=== PATIENT | female | born 1975 | race Caucasian/White ===

== ENCOUNTER 2019-10-07 17:29 | Emergency (ER) | payer SELFPAY ==
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
[2019-10-07 19:59] LABS: ABS Eosinophils 0.2 10^3/ul (0-0.6); ABS Lymphocytes 1.9 10^3/ul (1.0-4.8); ABS Monocytes 0.7 10^3/ul (0-0.8); Eosinophil % 1.8 %; Hematocrit 36 % (35-47); Hemoglobin 12.1 g/dL (12.0-16.0); Lymphocyte % 15.8 %; Mean Corpuscular HGB Conc 34 g/dL (31-36); Mean Corpuscular Hemoglobin 29 pg (27-31); Mean Corpuscular Volume 84 fL (80-97); Mean Platelet Volume 8.7 fL (7.4-10.4); Platelet Count 277 10^3/uL (150-450); Red Blood Count 4.23 10^6 /uL (3.70-4.87); Red Cell Distribution Width 15 % (10-15); White Blood Count 11.8 10^3/uL (3.5-10.8)
[2019-10-07 20:19] LABS: ALT 20 U/L (7-52); AST 23 U/L (13-39); Albumin 4.3 g/dL (3.2-5.2); Albumin/Globulin Ratio 1.3 (1-3); Alkaline Phosphatase 68 U/L (34-104); Anion Gap 7 mmol/L (2-11); BUN/Creatinine Ratio 15.9 (8-20); Blood Urea Nitrogen 13 mg/dL (6-24); CO2 Carbon Dioxide 28 mmol/L (22-32); Calcium 9.4 mg/dL (8.6-10.3); Chloride 103 mmol/L (101-111); EGFR African American 92.5 (>60); EGFR Non-African American 76.5 (>60); Globulin 3.3 g/dL (2-4); Glucose 120 mg/dL (70-100); Potassium 3.7 mmol/L (3.5-5.0); Sodium 138 mmol/L (135-145); Total Protein 7.6 g/dL (6.4-8.9)
[2019-10-07 20:23] LABS: HCG Pregnancy < 0.60 mIU/mL
[2019-10-07] MEDS ORDERED: Iohexol 300* (CONTRAST) 10 ML SDV IV ONE (20:31)
[2019-10-07 22:04] VITALS: BP 98/77
== END 2019-10-07 22:03 | disposition home or self-care (01) ==
LOC: ED 17:29
DX: S29.9XXA Unspecified injury of thorax, initial encounter (principal); S39.011A Strain of muscle, fascia and tendon of abdomen, initial encounter; V43.62XA Car passenger injured in collision with other type car in traffic accident, initial encounter; Y92.410 Unspecified street and highway as the place of occurrence of the external cause
CPT/HCPCS: 36415; 71046; 74177; 80053; 83605; 84702; 85025; 86140; 93005; 99282; Q9967

== ENCOUNTER 2019-10-15 08:46 | Emergency (ER) | payer SELFPAY ==
--- OUTSIDE RECORDS SUMMARY | 2019-10-15 08:53 | XMS REPORT | Continuity of Care Document ---
:1975 External Reference #:[id number] Author Name Tommie Salazar MD Address [address] [place] [address] Problems Active Problems Provider Date Asthma without status asthmaticus Richard Mc M.D. Onset: 10/31/2014 Acute sinusitis Richard Mc M.D. Onset: 10/31/2014 Allergic condition Ever Garnica M.D. Onset: 06/11/2012 Acute bronchitis Ever Garnica M.D. Onset: 06/11/2012 Herpes zoster without complication Isrrael Villalobos M.D. Onset: 04/15/2012 Acute upper respiratory infection Isrrael Villalobos M.D. Onset: 11/20/2011 Social History Type Date Description Comments Sex Unknown Tobacco Use Start: Unknown Nonsmoker Tobacco Use Start: Unknown Patient has never smoked Smoking Status Reviewed: 02/10/19 Patient has never smoked Allergies, Adverse Reactions, Alerts Active Allergies Reaction Severity Comments Date Cefuroxime rash 06/09/2012 Inactive Allergies NKDA 11/20/2011 Methylprednisolone rash 06/09/2012 Medications Active Medications SIG Qnty Indications Ordering Date Provider Sodium Chloride mix with 1box Sara CRobbie 05/28/2019 0.9% albuterol HAMLET Mccoy Nebulizer solution for nebulizer. Albuterol Sulfate use as needed 30units J45.998 Kori Singh 02/10/2019 (5mg/ML) for use in HAMLET Hay 0.5% Nebulizer nebulizer for wheezing. - Dx: J45.998 - last seen 02/10/19 Zyrtec-D Allergy & 1 every day as Unknown Congestion needed 5-120mg Tablets ER 12HR Cyclobenzaprine HCL 1 by mouth three Unknown 10mg times a day as Tablets needed x4 days Ibuprofen 1 tab by mouth Unknown 600mg Tablets every 6 hours as needed pain. take with food Acetaminophen ER take one tablet Unknown 650mg three hours Tablets ER after taking ibuprofen History Medications Cyclobenzaprine HCL 1 by mouth 20tabs Tommie Becker 10/07/2019 - 10mg three times a MD Marie 10/10/2019 Tablets day as needed for 4 days Amoxicillin 1 by mouth 14tabs Tommie Wills, 08/23/2019 - 500mg Tablets twice a day M.DRobbie 10/10/2019 Immunizations Description No Information Available Vital Signs Date Vital Result Comment 10/10/2019 2:45pm BP Systolic 100 mmHg BP Diastolic 70 mmHg Heart Rate 78 /min Body Temperature 97.7 F Height 68 inches 5'8" measured Weight 192.00 lb BMI (Body Mass Index) 29.2 kg/m2 08/23/2019 1:00pm BP Systolic 108 mmHg BP Diastolic 60 mmHg Heart Rate 66 /min Body Temperature 97.9 F Respiratory Rate 16 /min Height 69 inches 5'9" Weight 190.25 lb BMI (Body Mass Index) 28.1 kg/m2 Results Test Acquired Date Facility Test Result H/L Range Note CBC Auto Diff 10/07/2019 [facility] White Blood 11.8 10^3/uL High 3.5-10.8 Count Red Blood Count 4.23 10^6/uL Normal 3.70-4.87 Hemoglobin 12.1 g/dL Normal 12.0-16.0 Hematocrit 36 % Normal 35-47 Mean Corpuscular Volume 84 fL Normal 80-97 Mean Corpuscular Hemoglobin 29 pg Normal 27-31 Mean Corpuscular HGB Conc 34 g/dL Normal 31-36 Red Cell Distribution Width 15 % Normal 10-15 Platelet Count 277 10^3/uL Normal 150-450 Mean Platelet Volume 8.7 fL Normal 7.4-10.4 Abs Neutrophils 9.0 10^3/uL High 1.5-7.7 Abs Lymphocytes 1.9 10^3/uL Normal 1.0-4.8 Abs Monocytes 0.7 10^3/uL Normal 0-0.8 Abs Eosinophils 0.2 10^3/uL Normal 0-0.6 Abs Basophils 0.0 10^3/uL Normal 0-0.2 Abs Nucleated RBC 0.0 10^3/uL Granulocyte % 75.8 % Lymphocyte % 15.8 % Monocyte % 6.3 % Eosinophil % 1.8 % Basophil % 0.3 % Nucleated Red Blood Cells % 0.0 Laboratory test finding 10/07/2019 [facility] Lactic Acid 1.1 mmol/L Normal 0.5- 2.0 1 Comp Metabolic Panel 10/07/2019 [facility] Sodium 138 mmol/L Normal 135-145 Potassium 3.7 mmol/L Normal 3.5-5.0 Chloride 103 mmol/L Normal 101-111 Co2 Carbon Dioxide 28 mmol/L Normal 22-32 Anion Gap 7 mmol/L Normal 2-11 Glucose 120 mg/dL High 70-100 Blood Urea Nitrogen 13 mg/dL Normal 6-24 Creatinine 0.82 mg/dL Normal 0.51-0.95 BUN/Creatinine Ratio 15.9 Normal 8-20 Calcium 9.4 mg/dL Normal 8.6-10.3 Total Protein 7.6 g/dL Normal 6.4-8.9 Albumin 4.3 g/dL Normal 3.2-5.2 Globulin 3.3 g/dL Normal 2-4 Albumin/Globulin Ratio 1.3 Normal 1-3 Total Bilirubin 0.40 mg/dL Normal 0.2-1.0 Alkaline Phosphatase 68 U/L Normal 34-104 Alt 20 U/L Normal 7-52 Ast 23 U/L Normal 13-39 Egfr Non- 76.5 >60 Egfr 92.5 >60 2 Laboratory test finding 10/07/2019 [facility] C Reactive Protein 2.50 mg/L Normal <8.01 HCG < 0.60 mIU/mL 3 1 [facility] Severe Sepsis and Septic Shock Management Bundle Measure requires all lactic acids initially measuring >2.0 mmol/L be repeated. 2 Because ethnic data is not always readily available, this report includes an eGFR for both -Americans and non- Americans. The National Kidney Disease Education Program (NKDEP) does not endorse the use of the MDRD equation for patients that are not between the ages of 18 and 70, are , have extremes of body size, muscle mass, or nutritional status, or are non- or non-. According to the National Kidney Foundation, irrespective of diagnosis, the stage of the disease is based on the level of kidney function: Stage Description GFR(mL/min/1.73 m(2)) 1 Kidney damage with normal or decreased GFR 90 2 Kidney damage with mild decrease in GFR 60-89 3 Moderate decrease in GFR 30-59 4 Severe decrease in GFR 15-29 5 Kidney failure <15 (or dialysis) 3 <5.0 Negative 5.0 - 25.0 Indeterminate (Repeat testing recommended after 72 hours) >25.0 Positive Perimenopausal women can display HCG levels of up to 20 mIU/mL Procedures Date Code Description Status 01/31/2017 [id number] Mammogram Completed Medical Devices Description No Information Available Encounters Type Date Location Provider Dx Diagnosis Office Visit 08/23/2019 Main Office Tommie Wills, 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 Plan of Treatment 10/10/2019 - Tommie Salazar, NAOMIE20.20xD Contusion of thorax, unspecified, subsequent encounterAllComments:Medication Management Patient Understands medications she's taking? Yes No Are there Barriers to Adherence? Yes No Has the patient been asked about herbal supplements and therapies, and OTC meds? Yes No Functional Status Description No Information Available Mental Status Description No Information Available Referrals Description No Information Available
[2019-10-15 09:02] VITALS: BP 102/63
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
[2019-10-15] MEDS ORDERED: NS 0.9% 1000 ML** 1,000 ML IV ONE (09:17)
[2019-10-15] MEDS ORDERED: Ondansetron INJ* 2 MG/ML VIAL IV ONE (09:18)
[2019-10-15] MEDS ORDERED: Morphine 10 MG/ML VIAL (1 ml) IV ONE (09:18)
== END 2019-10-15 09:55 | disposition short-term general hospital (02) ==
LOC: UCEAST 08:46
DX: R07.89 Other chest pain (principal); R06.02 Shortness of breath; R10.9 Unspecified abdominal pain; Z88.8 Allergy status to other drugs, medicaments and biological substances
CPT/HCPCS: 71046; 93005; 96360; 96375; 96376; 99213; G0463; J2270; J2405

== ENCOUNTER 2019-10-15 10:08 | Emergency (ER) | payer OTHER ==
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
[2019-10-15 10:32] LABS: ABS Eosinophils 0.3 10^3/ul (0-0.6); ABS Monocytes 0.5 10^3/ul (0-0.8); ABS Neutrophils 4.5 10^3/ul (1.5-7.7); Hematocrit 36 % (35-47); Hemoglobin 11.9 g/dL (12.0-16.0); Lymphocyte % 27.2 %; Mean Corpuscular HGB Conc 33 g/dL (31-36); Mean Corpuscular Hemoglobin 28 pg (27-31); Mean Corpuscular Volume 85 fL (80-97); Mean Platelet Volume 8.5 fL (7.4-10.4); Platelet Count 270 10^3/uL (150-450); Red Blood Count 4.24 10^6 /uL (3.70-4.87); Red Cell Distribution Width 15 % (10-15); White Blood Count 7.3 10^3/uL (3.5-10.8)
[2019-10-15] MEDS ORDERED: Nitroglycerin TAB 0.4 MG* 0.4 MG TAB SL ONE (10:55)
[2019-10-15] MEDS ORDERED: Aspirin 81 mg CHEW TAB* 81 MG TAB.CHEW PO ONE (10:55)
[2019-10-15 10:56] LABS: Albumin 3.8 g/dL (3.2-5.2); Albumin/Globulin Ratio 1.2 (1-3); BUN/Creatinine Ratio 18.1 (8-20); Calcium 8.6 mg/dL (8.6-10.3); EGFR African American 91.2 (>60); EGFR Non-African American 75.4 (>60); Globulin 3.2 g/dL (2-4); Potassium 3.4 mmol/L (3.5-5.0); Total Bilirubin 0.4 mg/dL (0.2-1.0)
[2019-10-15] MEDS ORDERED: Morphine 4 MG/ML VIAL (1 ml) 4 MG/ML VIAL IV ONE (11:14)
[2019-10-15 12:08] VITALS: BP 121/78
== END 2019-10-15 12:08 | disposition home or self-care (01) ==
LOC: ED 10:08
DX: R07.9 Chest pain, unspecified (principal); J45.909 Unspecified asthma, uncomplicated; Z88.8 Allergy status to other drugs, medicaments and biological substances
CPT/HCPCS: 36415; 80053; 84484; 85025; 85379; 93005; 96374; 99283; A9270-GY; J2270